=== PATIENT | female | born 1960 | race Caucasian/White ===

== ENCOUNTER 2020-10-24 10:07 | Emergency (ER) | payer BC, SELFPAY ==
[2020-10-24 10:09] VITALS: BP 161/93; PULSE 92; RESP 14; TEMP 36.8; O2SAT 100; BMI 21.8
--- NOTE | 2020-10-24 10:19 | RAD_ITS ---
STUDY: X-RAY CHEST REASON FOR EXAM: Female, 60 years old. Sternal chest pain and left cervical pain. TECHNIQUE: Single AP portable view of the chest. COMPARISON: None. FINDINGS: EKG electrodes are seen. Hyperinflation. Lungs are clear. There is no demonstrated pleural abnormality. Normal size heart. Normal mediastinum and jeannette. Normal visualized pulmonary arteries. There is atherosclerotic tortuosity of the aortic arch and descending thoracic aorta. Normal visualized thoracic spine. Normal visualized ribs, clavicles, and shoulders. There is no demonstrated abnormality of the visualized soft tissue structures of the upper abdomen. RAD/Chest 1 View (Portable) IMPRESSION: Hyperinflation. The lungs are clear. Electronically Signed: Eren Townsend MD at 10:47 EDT , Service support ,
--- NOTE | 2020-10-24 10:19 | EKG12_ITS ---
Test Reason : CHEST PAIN Blood Pressure : / mmHG Vent. Rate : 084 BPM Atrial Rate : 084 BPM P-R Int : 130 ms QRS Dur : 080 ms QT Int : 390 ms P-R-T Axes : 067 028 058 degrees QTc Int : 460 ms Normal sinus rhythm Normal ECG Confirmed by TITO KEENE, LUZ ELENA ([id number]), content editor KESHAV MENDOZA ([id number]) on 10/29/2020 1:21:17 PM Referred By: MR Confirmed By:LUZ ELENA FRANCIS MD
--- NOTE | 2020-10-24 10:21 | EDS_ITS ---
HPI History of Present Illness Chief Complaint: Chest Pain Narrative Narrative: Patient presents with chest pain for 3 days it has been mostly constant except there was a. Of a few hours yesterday where she did not have it. It is right- sided the chest. It is worse with twisting and turning as well as pressing on her chest. She has no fever or chills she has no cough or congestion she denies any back pain or tearing sensation she has no pleuritic component. No DVT or PE risk factors. No lower extremity edema or calf pain. [facility] Medical History (Updated 10/24/20 @ 11:[address] Avinash Narayan MD) Anxiety Home Medications bupropion HCl [Wellbutrin] 100 mg PO DAILY 10/24/20 [History Last Taken Unknown] Allergy/AdvReac Type Severity Reaction Status Date / Time No Known Allergies Allergy Verified 10/24/20 10:12 Social History Smoking Status: Never smoker ROS ROS ED ROS Narrative Past medical history: Reviewed Medications: Wellbutrin Social history: Non-smoker Review of systems: All systems negative except as indicated General: No fever Eyes: No visual changes ENT: No upper airway congestion, normal voice Neck: No neck pain Cardiovascular: Chest pain as in HPI Respiratory: No shortness of breath or cough Gastrointestinal: No abdominal pain, nausea vomiting or diarrhea Genitourinary: No dysuria Musculoskeletal: Denies myalgias no difficulty with ambulation Skin: No rash Neurological: No memory loss, confusion or any focal weakness Psych: No recent behavioral changes Hematologic: No easy bleeding or easy bruising EXAM Physical Exam Narrative Exam Narrative: Physical exam General: Well nourished, Well developed, No Acute Distress Head: Normocephalic, Atraumatic Eyes: Conjunctiva not pale ENT: Moist mucous membranes Neck: Supple, Nontender, No lymphadenopathy Cardiovascular: Regular rate, Regular rhythm Chest Wall: Right-sided reproducible chest wall pain Respiratory: No distress, CTA bilaterally Abdomen: Soft, Nontender, Nondistended Back: Nontender, Normal Inspection. Negative for: CVA tenderness Extremities: Nontender, No edema Skin: Normal color, No rash Neurological: Alert, Normal Strength, Normal Sensation Psychological: Normal affect Const Vital Signs: 10/24/20 10:09 10/24/20 10:13 10/24/20 10:24 Temperature 98.3 F Temperature Source Temporal Pulse Rate 92 Respiratory Rate 14 Respiratory Effort Normal Non-Labored Blood Pressure 161/93 H Blood Pressure Mean 115 Pulse Ox 100 100 Oxygen Delivery Method Room Air Room Air Heart Score History: Slightly/Non-Suspicious ECG: Normal Age: >45 - <65 years Risk Factors: No Risk Factors Troponin: </= Normal Limit Score: 1 MDM MDM MDM Narrative Medical decision making narrative: Patient has a normal ED work-up. Heart score is 1. She has reproducible chest wall pain I believe she is stable for discharge. Lab Data Labs: Laboratory Results - last 24 hr 10/24/20 10/24/20 10:10 10:10 WBC 7.0 RBC 4.79 Hgb 14.0 Hct 42.5 MCV 88.7 MCH 29.2 MCHC 32.9 RDW Std Deviation 40.6 RDW Coeff of Love 12.3 Plt Count 265 MPV 10.3 Immature Gran % (Auto) 0.300 Neut % (Auto) 61.0 Lymph % (Auto) 27.3 [place] % (Auto) 8.3 Eos % (Auto) 2.1 Baso % (Auto) 1.0 Absolute Neuts (auto) 4.3 Absolute Lymphs (auto) 1.92 Nucleated RBC % 0 Sodium 138 Potassium 4.0 Chloride 104 Carbon Dioxide 30.0 Anion Gap 4 L BUN 13 Creatinine 0.99 Estim Creat Clear Calc 58.77 Est GFR (MDRD) Af Amer 73 Est GFR (MDRD) Non-Af 61 BUN/Creatinine Ratio 13.1 Glucose 107 H Calcium 9.6 Troponin I < 0.015 Radiography Diagnostic Testing: Radiology Impression Chest X-Ray 10/24/20 10:19 IMPRESSION: Hyperinflation. The lungs are clear. Electronically Signed: Eren Townsend MD at 10:47 EDT , Service support , Chest x-ray interpreted by me and the radiologist does not show any pneumonia, normal heart. Normal x-ray. EKG Initial EKG: Comments: Normal sinus rhythm with a rate of 84. Normal OR and QTc interval. No ischemic changes. Interpreted by emergency doctor Discharge Plan Triage Chief Complaint: Chest Pain ED Provider: Avinash Narayan Dx/Rx/DC Orders Clinical Impression: Chest pain Instructions: ED Chest Pain, Uncertain Cause Prescriptions: No Action bupropion HCl [Wellbutrin] 100 mg Tablet 100 mg PO DAILY RF: 0 Referrals: Avinash Lopes MD [STAFF PHYSICIAN] - 2 Days
[2020-10-24 10:24] VITALS: O2SAT 100
[2020-10-24 10:27] LABS: Absolute Lymphocyte Count 1.92 X10^3/uL (0.83-4.51); Absolute Neutrophil Count 4.3 X10^3/uL (2.0-7.7); Basophil# 0.07 X10^3/uL; Eosinophil# 0.15 X10^3/uL; Eosinophils% 2.1 % (0-5); Hematocrit 42.5 % (37-47); Lymphocyte # 1.92 X10^3/ul (0.83-4.51); Lymphocyte % 27.3 % (19-41); Mean Corp Hgb Conc 32.9 g/dL (32-36); Mean Corpuscular Hgb 29.2 pg (27.0-32.0); Mean Corpuscular Volume 88.7 fL (81-99); Mean Platelet Vol. 10.3 fl (6.2-12.0); Monocyte# 0.58 X10^3/uL; Monocyte% 8.3 % (0-10); NRBC Flagged by Analyzer 0 % (0-5); Neutrophil # 4.29 X10^3/uL (2.7-7.7); Platelet Count 265 K/mm3 (150-450); RBC Distribution Width CV 12.3 % (11.6-14.6); RBC Distribution Width SD 40.6 fl (35.1-43.9); Red Blood Count 4.79 M/mm3 (4.2-5.4)
[2020-10-24] MEDS: Aspirin 81 MG TAB.CHEW 324 MG PO (10:31)
[2020-10-24 10:42] LABS: Anion Gap 4 (5-15); BUN 13 mg/dL (7-18); BUN/Creat Ratio 13.1 RATIO (10-20); Calcium,Total 9.6 mg/dL (8.5-10.1); Chloride 104 mmol/L (98-107); Creatinine, Serum 0.99 mg/dL (0.55-1.02); EST Glomerular Filtration Rate 61 mL/min (>60); Est Glom Filt Rate - Afr Amer 73 mL/min (>60); Estimated Creatinine Clearance 58.77 ml/min; Glucose 107 mg/dL (74-106); Sodium Level 138 mmol/L (136-145)
[2020-10-24 11:22] VITALS: BP 131/71; PULSE 78; RESP 16; O2SAT 98
== END 2020-10-24 11:23 | disposition home or self-care (01) ==
LOC: ED 11:09
PROVIDERS: Emergency Provider Emergency Medicine
DX: R07.9 Chest pain, unspecified (principal); F41.9 Anxiety disorder, unspecified; Z79.899 Other long term (current) drug therapy
CPT/HCPCS: 71045; 80048; 84484; 85025; 93005; 99283; A4216